=== PATIENT | female | born 1940 | race Caucasian/White ===

== ENCOUNTER 2016-08-19 11:58 | Day surgery (SDC) | payer MEDICARE ==
[~2016-08-19] VITALS: Ht 162.6 cm; Wt 65.8 kg
[~2016-08-19 11:58] MED LIST: ALENDRONATE SOD70 MG PO; ALEVE220 MG PO; ASPIRIN EC81 MG PO; CALCIUM + VITA1 EACH PO; CENTRUM SILVER1 EAC3 PO; LEVOTHYROXINE88 MCG PO; OMEPRAZOLE20 MG PO
--- NOTE | 2016-08-19 13:44 | NUR ---
08[facility]19/16 1344 [facility] REMOV[facility] AT THIS [facility].
--- NOTE | 2016-08-19 14:14 | NUR ---
PATIENT BACK IN DAY SURGERY ROOM FROM PACU. DENIES PAIN. DENIES NAUSEA. CSM TO RIGHT FOOT WNL. ICE PACK TO RIGHT KNEE. RIGHT LEG ELEVATED ON PILLOWS. RIGHT KNEE DRESSING CDI. IV SITE WNL. SCD ON LEFT LEG. FAMILY AT BEDSIDE. CALL LIGHT WITHIN REACH. ICE WATER GIVEN TO PATIENT.
[2016-08-19] MEDS ORDERED: NAPROXEN500 MG PO (14:42)
[2016-08-19] MEDS ORDERED: HYDROCODON-ACE1 EA11 PO (14:42)
--- NOTE | 2016-08-19 14:56 | NUR ---
PATIENT ASSISTED OOB AND TO BATHROOM. GAIT STEADY. VOID WITHOUT DIFFICULTY. WALKED INDEPENDENTLY BACK TO BED. GAIT STEADY. LUNCH ORDERED. IV SALINE LOCKED. FAMILY AT BEDSIDE. CALL LIGHT WITHIN REACH.
--- NOTE | 2016-08-19 16:19 | NUR ---
1608: PATIENT TOLERATED LUNCH. DISCHARGE INSTRUCTIONS GIVEN TO PATIENT AND FAMILY. IV DC'D WNL. DRESSING APPLIED. PATIENT DRESSED INDEPENDENTLY. PATIENT DISCHARGED TO HOME VIA WHEELCHAIR WITH DAUGHTER AND SON.
== END 2016-08-19 16:08 | disposition home or self-care (01) ==
LOC: DS 11:58
PROVIDERS: Specialist
PROC: 0SBC4ZZ Excision of Right Knee Joint, Percutaneous Endoscopic Approach (ICD-10-PCS; principal; 2016-08-19 13:00)
DX: S83.231A Complex tear of medial meniscus, current injury, right knee, initial encounter (principal); M94.261 Chondromalacia, right knee; K21.9 Gastro-esophageal reflux disease without esophagitis; Z88.0 Allergy status to penicillin; Z82.49 Family history of ischemic heart disease and other diseases of the circulatory system; Z82.3 Family history of stroke
CPT/HCPCS: 01400; J0690; J1885; J2405; J2704; J3010; J7120

== ENCOUNTER 2020-01-08 14:00 | Emergency (ER) | payer MEDICARE ==
[~2020-01-08] VITALS: Ht 162.6 cm; Wt 64.0 kg
[~2020-01-08 14:00] MED LIST changes: +HYDROCODON-ACE1 EA11 PO; +LEVOTHYROXINE75 MCG PO; +MAPAP500 M1 PO; +NAPROXEN500 MG PO; +NEURONTIN300 MG PO; +OXYCODONE HCL5 MG PO; +SENNA LAX8.6 MG PO; +XARELTO10 MG PO
[2020-01-08] MEDS ORDERED: LEVOTHYROXINE88 MCG PO (14:30)
--- NOTE | 2020-01-09 11:11 | EKG ---
[facility] [address] [facility] [place], [place] [address] Signed Normal sinus rhythm Normal ECG When compared with ECG of 21-OCT-2017 15:35, No significant change was found Confirmed by YAMEL RODRIGUEZ MD ([id number]) on 01/09/2020 11:10:51 AM Electronically Signed By: YAMEL RODRIGUEZ MD 01/09/20 1111 PATIENT NAME: GINA AKHTAR Electrocardiogram DATE OF : 40 PHYSICIAN: YAMEL RODRIGUEZ MD REPORT #: [id number] REPORT IS CONFIDENTIAL AND NOT TO BE RELEASED WITHOUT AUTHORIZATION
== END 2020-01-08 16:16 | disposition home or self-care (01) ==
LOC: ED 14:00
DX: S50.02XA Contusion of left elbow, initial encounter (principal); S80.02XA Contusion of left knee, initial encounter; S00.511A Abrasion of lip, initial encounter; W19.XXXA Unspecified fall, initial encounter; Z88.0 Allergy status to penicillin; Z88.8 Allergy status to other drugs, medicaments and biological substances; Z79.899 Other long term (current) drug therapy; Z79.82 Long term (current) use of aspirin
CPT/HCPCS: 70450; 80053; 81001; 83735; 84484; 85025; 93005; 93010; 99284-25

== ENCOUNTER 2021-03-11 09:41 | Emergency (ER) | payer MEDICARE ==
[~2021-03-11] VITALS: Ht 162.6 cm; Wt 64.0 kg
[~2021-03-11 09:41] MED LIST changes: +KEFLEX500 MG PO; +NITROFURANTOIN100 MG PO; +NORCO 5-325 TA1 EACH PO; +TAMIFLU75 MG PO
== END 2021-03-11 13:45 | disposition home or self-care (01) ==
LOC: ED 09:41
DX: U07.1 COVID-19 (principal); Z23 Encounter for immunization; Z88.0 Allergy status to penicillin; Z88.8 Allergy status to other drugs, medicaments and biological substances; Z79.899 Other long term (current) drug therapy; Z79.82 Long term (current) use of aspirin
CPT/HCPCS: 96374; 99283-25; J2405; M0247

== ENCOUNTER 2022-04-05 08:48 | Day surgery (SDC) | payer MEDICARE ==
[~2022-04-05] VITALS: Ht 162.6 cm; Wt 62.7 kg
--- NOTE | ~2022-04-05 | OR ---
[facility] [address] [place], [place] [address] Draft DATE OF OPERATION: 04/05/2022 SURGEON: Zach Price MD PREOPERATIVE DIAGNOSIS: Degenerative joint disease, left knee. POSTOPERATIVE DIAGNOSIS: Degenerative joint disease, left knee. PROCEDURE PERFORMED: Left total knee arthroplasty with Yan. SOUP MIXER: JONATHAN Kingsley. Su was present and critical for all portions of procedure. ANESTHESIA: Spinal. BLOOD LOSS: 175 mL. TOURNIQUET TIME: Zero. IMPLANTS: [place] Triathlon size 3 femur, 2 tibia, 9 mm polyethylene and a 32 mm patella. BRIEF HISTORY: Gina is an 81-year-old female with progressive worsening of left knee arthritis. She had undergone prior right total knee with good results and wished to proceed with the left. DESCRIPTION OF PROCEDURE: Once consent was obtained, she was taken to the operating room. After adequate anesthesia, she was placed on the operating room table and a hip bump. The leg was prepped and draped in a standard sterile fashion. The knee was then approached through a standard anterior midline incision, carried through skin and subcutaneous tissue. A mid vastus arthrotomy was performed and the infrapatellar fat pad was excised and the PATIENT NAME: GINA AKHTAR OPERATIVE REPORT DATE OF : 40 REPORT #: [id number] PHYSICIAN: ZACH PRICE MD PCP: ILIANA JACKSON MD REPORT IS CONFIDENTIAL AND NOT TO BE RELEASED WITHOUT AUTHORIZATION [facility] [address] [place], [place] [address] Draft MCL was elevated with a sleeve around the posteromedial corner. The anterior horns of the menisci and the ACL were transected. PCL was found to be intact. The navigation computer rays were placed in the medial femoral condyle and the proximal tibia. The leg was registered with the computer. The fine anatomic points of the knee were then registered and varus valgus testing was undertaken with minimal changes. Once this was completed, a robot was brought in and the four straight cuts and 2 angle cuts were made with care taken to protect the MCL and patellar tendon. The bony remnants removed as were any osteophytes. There were no significant osteophytes off the posterior femur. The trials were then positioned. The knee was taken through range of motion and found to be stable with good ligamentous balance. The patella was cut sized and drilled for an asymmetric 32 mm patella. The distal femoral drill holes were made. The proximal tibia was finished using the keel punch. Due to her poor bone quality and age, we elected to go with a hybrid prosthesis. The tibia was then irrigated and packed with a dry Ray-Yoav. The prosthesis was obtained and cement was mixed. Once the cement was mixed it was then placed on the tibia and patella along with corresponding implants. The tibia was impacted in position first, all overflow cement was removed. The polyethylene was snapped into position and the femur was impacted. The knee was then extended and nicely loaded. The patella was clamped into position again, all excess cement was removed. The cement was allowed to harden. Once it was hardened sufficiently, the remaining overflow was removed. The patella was noted to track quite well. The periarticular soft tissue was injected with 80 mL ropivacaine and Toradol mixture. On-Q pain pump was percutaneously placed into the adductor canal from the suprapatellar pouch. The knee was irrigated with two bottles of Irrisept and a liter of normal saline. The arthrotomy was then closed using #2 Stratafix, subcutaneous tissue with the 0 Quill and the skin with 3-0 Stratafix. LiquiBand was applied and the wound was dressed with an Aquacel Ag dressing, ABDs and Ken wrap. She tolerated the procedure well. All sponge, needle, and instrument counts were correct. Zach Price MD BA/MODL /[id number] Copies: PATIENT NAME: GINA AKHTAR OPERATIVE REPORT DATE OF : 40 REPORT #: [id number] PHYSICIAN: ZACH PRICE MD PCP: ILIANA JACKSON MD REPORT IS CONFIDENTIAL AND NOT TO BE RELEASED WITHOUT AUTHORIZATION [facility] [address] [place] [address] [place], [place] [address] Draft ~ PATIENT NAME: GINA AKHTAR OPERATIVE REPORT DATE OF : 40 REPORT #: [id number] PHYSICIAN: ZACH PRICE MD PCP: ILIANA JACKSON MD REPORT IS CONFIDENTIAL AND NOT TO BE RELEASED WITHOUT AUTHORIZATION
[~2022-04-05 08:48] MED LIST changes: +PROLIA60 MG/1 ML SUB-Q
[2022-04-05] MEDS ORDERED: PRESERVISION A1 EAC4 PO (09:30)
--- NOTE | 2022-04-05 10:26 | NUR ---
CASTRO 1010: BENEDICTO VALLES IN ROOM PERFORMING LEFT TOTAL KNEE BLOCK. THIS RN ASSITED WITH BLOCK. PT TOLERATED WELL. PT RESTING IN BED. APPEARS SLEEPY AFTER KNEE BLOCK. OXYGEN MONITOR ON. PT MAINTAINING O2 SATS AT 95% AND THEN DROPS TO 88% WHEN ASLEEP. DAUGHTER CONCEPCIÓN AT BEDSIDE.
--- NOTE | 2022-04-05 10:32 | NUR ---
2 L O2 VIA NASAL CANNULA INITIATED PER BENEDICTO CARPET FINISHING SUPERVISOR REQUEST. PT TOLERATING O2 LEVELS ABOVE 99%.
[2022-04-05] MEDS ORDERED: GABAPENTIN300 MG PO (12:24)
[2022-04-05] MEDS ORDERED: OXYCODONE HCL5 MG PO (12:24)
[2022-04-05] MEDS ORDERED: SENNA LAX8.6 MG PO (12:25)
[2022-04-05] MEDS ORDERED: ASPIRIN EC325 MG PO (12:25)
--- NOTE | 2022-04-05 12:38 | NUR ---
04/05/22 1238 Cristy Ahumada 1230 PATIENT ARRIVES TO PACU AWAKE, ASKING/ANSWERING QUESTIONS APPROPRIATELY. RESP EVEN AND UNLABORED, ROOM AIR SATS >95%. DENIES PAIN OR NAUSEA. 1235 PATIENT SITTING UP DRINKING WATER.
--- NOTE | 2022-04-05 13:04 | NUR ---
PT TRANSPORTED TO DAY SURGERY ROOM 3 VIA STRETCHER. REPORT TAKEN FROM CHARLIE LEZAMA. PT DENIES PAIN AND NAUSEA. PT SIPPING ICE WATER. DAUGHTER AT BEDSIDE. PT HAS ICE ON LEFT KNEE AND REPORTS FEELING THIS RN'S HAND ON BOTTOM OF FOOT. PT ABLE TO MOVE TOES AND LEG WITHOUT PAIN. CALL LIGHT WITHIN REACH.
--- NOTE | 2022-04-05 13:08 | NUR ---
PT EATING APPLE SAUCE AND CRACKERS AT BEDSIDE. CALL LIGHT WITHIN REACH.
--- NOTE | 2022-04-05 13:49 | NUR ---
PT RESTING IN BED WITH DAUGHTER AT BEDSIDE. PT DENIES PAIN HOWEVER WOULD LIKE ICE PACK ON BACK OF LEFT KNEE. DENIES NAUSEA. PT SIPPING WATER. PT STATES SHE IS READY TO WORK WITH PHYSICAL THERAPY. DENIES WANTING ANY PAIN MEDS. DENIES WANTING PAIN MEDICATION. CALL LIGHT WITHIN REACH.
--- NOTE | 2022-04-05 14:05 | NUR ---
PT RESTING IN BED WITH DAUGHTER AT BEDSIDE. PT DENIES PAIN. PT USING KARINA PAWS WARMER UNDER BLANKET. PT USED INCENTIVE SPIROMETER AT BEDSIDE. PT INFORMED THAT PHYSICAL THERAPY WOULD BE COMING SOON. CALL LIGHT WITHIN REACH.
--- NOTE | 2022-04-05 14:32 | NUR ---
LE 1415: PT AMBULATED TO RESTROOM WITH WALKER AND THIS RN ASSISTED. PT TOLERATED WELL AND DID NOT COMPLAIN OF PAIN OR DIZZINESS. PT AMBULATED WITH WALKER BACK TO ROOM 3 WITH ASSISTANCE. PT DENIES DIZZINESS AND PAIN. PT LAYED BACK IN BED WITH DAUGHTER AT BEDSIDE. 1425: SECOND DOSE OF TXA GIVEN. CALL LIGHT WITHIN REACH.
--- NOTE | 2022-04-05 15:29 | NUR ---
LE 1500: PT WITH PHYSICAL THERAPY. PT RESTING IN BED WITH DAUGHTER AT BEDSIDE. REPORTS FEELING TIRED FROM PHYSICAL THERAPY. DENIES PAIN AND NAUSEA. WATER AT BEDSIDE. CALL LIGHT WITHIN REACH.
--- NOTE | 2022-04-05 15:37 | NUR ---
CALL PLACED TO DR OCONNOR TO UPDATE ON PT STATUS AND PASSING PHYSICAL THERAPY. DR OCONNOR APPROVES FOR PT TO BE DISCHARGED.
--- NOTE | 2022-04-05 16:17 | NUR ---
LE 1555: SECOND DOSE ANCEF GIVEN. FLUSHED WITH 10 ML NORMAL SALINE. IV D/C WNL, TIP INTACT. DISCHARGE INSTRUCTIONS REVIEWED WITH PT AND DAUGHTER. QUESTIONS AND CONCERNS ADDRESSED. 1600: PT TO EDGE OF BED TO GET DRESSED IN PERSONAL CLOTHING WITH ASSISTANCE. PT TOLERATED WELL. 1610: PT DISCHARGED VIA WHEELCHAIR TO PERSONAL AUTOMOBILE TO DAUGHTER.
== END 2022-04-05 16:10 | disposition home or self-care (01) ==
LOC: DS 08:48
PROVIDERS: ATTEND Specialist
PROC: 3E0T3BZ Introduction of Anesthetic Agent into Peripheral Nerves and Plexi, Percutaneous Approach (ICD-10-PCS; 2022-04-05)
PROC: 0SRD0J9 Replacement of Left Knee Joint with Synthetic Substitute, Cemented, Open Approach (ICD-10-PCS; principal; 2022-04-05 11:40)
DX: M17.12 Unilateral primary osteoarthritis, left knee (principal); Z88.0 Allergy status to penicillin; Z88.8 Allergy status to other drugs, medicaments and biological substances; Z86.73 Personal history of transient ischemic attack (TIA), and cerebral infarction without residual deficits; E03.9 Hypothyroidism, unspecified; M10.062 Idiopathic gout, left knee
CPT/HCPCS: J0690; J1100; J1885; J2001; J2250; J2704; J2795; J7121

== ENCOUNTER 2023-08-02 12:48 | Day surgery (SDC) | payer MEDICARE ==
[~2023-08-02] VITALS: Ht 165.1 cm; Wt 65.5 kg
[~2023-08-02 12:48] MED LIST changes: +ASPIRIN EC325 MG PO; +CEFAZOLIN SODIUM 2 GM/20 ML SYR IV SCH; +GABAPENTIN300 MG PO; +IBLOOD GLUCOSE TEST STRIP 1 EA TEST VI PRN; +LACTATED RINGER'S 1,000 ML IV SCH; +LIDOCAINE HCL 1% 5 ML SDV INJ ONE; +MIDAZOLAM HCL 5 MG/5 ML VIAL IV PRN; +PRESERVISION A1 EAC4 PO; +fentaNYL citrate 100 MCG/2 ML VIAL IV PRN
--- NOTE | 2023-08-02 14:02 | NUR ---
LE 1305-PT UPDATED REGARDING SURGERY WAIT TIME. PT VERBALIZED UNDERSTANDING. NO OTHER NEEDS AT THIS TIME. CALL LIGHT WITHIN REACH.
[2023-08-02] MEDS ORDERED: CALCIUM 600 MG1 EA10 PO (14:56)
[2023-08-02] MEDS ORDERED: LOW DOSE ASPIRI81 MG PO (14:56)
[2023-08-02 15:09] VITALS: BP 153/74
[2023-08-02] MEDS ORDERED: MIDAZOLAM HCL 5 MG/5 ML VIAL ONE (18:08)
[2023-08-02] MEDS ORDERED: fentaNYL citrate 100 MCG/2 ML VIAL ONE (18:08)
--- NOTE | 2023-08-02 19:01 | NUR ---
08/02/231900 Regina Garrett 1856- PT ARRIVES TO UNIT VIA STRETCHER FROM OR. PT IS A&O AND RESPONDS TO VERBAL STIMULI W/OUT DIFFICULTY. PT RESPIRATIONS ARE EVEN AND UNLABORED, NO SIGNS OF DISTRESS. PT ON 2L OF O2 VIA NC, O2 >90% AT THIS TIME.
[2023-08-02 19:26] VITALS: BP 123/64
--- NOTE | 2023-08-05 11:50 | PATH ---
[facility] [address] [facility] [place] [address] Signed SPECIMEN(S): A HEPATIC FLEXURE COLON POLYP SPECIMEN(S): B ASCENDING RIGHT COLON POLYP SPECIMEN(S): C HEPATIC FLEXURE COLON POLYP SPECIMEN SOURCE: A. HEPATIC FLEXURE COLON POLYP B. ASCENDING RIGHT COLON POLYP C. HEPATIC FLEXURE COLON POLYP CLINICAL HISTORY: History colon polyps, family history colon cancer FINAL PATHOLOGIC DIAGNOSIS: A. Colon, hepatic flexure, polypectomy: - Tubular adenoma B. Colon, ascending, polypectomy: - Tubular adenoma C. Colon, hepatic flexure, polypectomy: - Tubular adenoma BRP MICROSCOPIC EXAMINATION: Histologic sections of all submitted blocks are examined by light microscopy. These findings, together with the gross examination, support the pathologic diagnosis. GROSS DESCRIPTION: A. The specimen, labeled and designated "Henajman, M, hepatic flexure colon polyp," is received in formalin and consists of four amos soft tissue fragments, ranging from 0.2-0.4 cm. Entirely submitted in (A1). B. The specimen, labeled and designated "Heehn, M, ascending right colon polyp," is received in formalin and consists of five amos soft tissue fragments, ranging from 0.2-0.4 cm. Entirely submitted in (B1). C. The specimen, labeled and designated "Heehn, M, hepatic flexure colon polyp," is received in formalin and consists of four amos soft tissue fragments, ranging from 0.2-0.4 cm. Entirely submitted in (C1). HS (under the direct supervision of a pathologist) The Gross Description was prepared using a voice recognition system. The report PATIENT NAME: GINA AKHTAR PATHOLOGY DATE OF : 40 REPORT #: [id number] PHYSICIAN: SUNITHA QUINONEZ PCP: ILIANA JACKSON MD REPORT IS CONFIDENTIAL AND NOT TO BE RELEASED WITHOUT AUTHORIZATION [facility] [address] [place], [place] [address] Signed was reviewed for accuracy; however, sound-alike word errors, addition and/or deletions may occur. If there is any question about this report, please contact Client Services. ADDITIONAL NOTES: Immunohistochemical and/or in situ hybridization studies if performed in this case included appropriate positive controls that reacted as expected. This test was developed and its performance characteristics determined by [facility]. It has not been cleared or approved by the U.S. Food and Drug Administration. The FDA has determined that such clearance or approval is not necessary. This test is used for clinical purposes. It should not be regarded as investigational or for research. [facility] is certified under the Clinical Laboratory Improvement Amendments of 1988 (CLIA) as qualified to perform high complexity clinical laboratory testing. PERFORMING LABORATORY: Technical component was performed by [facility], [address] [place] [id number] (CLIA# [id number]). Professional interpretation was performed by [facility], [address] [address] (CLIA# [id number]). Diagnostician: Vidal Marin MD Pathologist Electronically Signed 08/05/2023 Copies: ~ PATIENT NAME: GINA AKHTAR PATHOLOGY DATE OF : 40 REPORT #: [id number] PHYSICIAN: SUNITHA PATHOLOGY PCP: ILIANA JACKSON MD REPORT IS CONFIDENTIAL AND NOT TO BE RELEASED WITHOUT AUTHORIZATION
--- NOTE | 2023-08-05 15:28 | OR ---
[facility] [address] [place], [place] [address] Signed DATE OF OPERATION: 08/02/2023 SURGEON: Melvin Coleman MD PREOPERATIVE DIAGNOSES: 1. History of polyps. 2. Family history of colon cancer. POSTOPERATIVE DIAGNOSIS: Polyps x5 and diverticulosis. PROCEDURE: Total colonoscopy to cecum with cold morcellation polypectomy x1 and cold snare polypectomy x1. ANESTHESIA: Intravenous sedation; fentanyl 100 mcg and Versed 5 mg. INDICATION: This 82-year-old white woman is a patient of Dr. Jackson. She is well-known to me from the past. She has a significant family history of colon cancer including both her brothers. She has undergone polypectomy by me in the distant past including the cecum and elsewhere. Her last colonoscopy was in 2019, showing tubular adenomas without dysplasia in the ascending colon, splenic flexure and in the sigmoid. She has a distant history of ischemic colitis, but no problems of that nature at this time. She is admitted to undergo surveillance colonoscopy, understand the risk of bleeding, infection, and perforation. FINDINGS: The prep was good. Complete colonoscopy was undertaken of the cecum. There was a small polyp of the cecum, two in the right colon, one in the hepatic flexure and another at the hepatic flexure proper. All were excised completely. DESCRIPTION OF PROCEDURE: The patient was brought to the endoscopy suite and placed in lateral decubitus position, given intravenous sedation to the point of slurred speech and nystagmus. Digital rectal examination was normal. An Olympus video colonoscope was passed in the rectum and manipulated throughout the colon ultimately intubating the cecum itself. In the junction between the right colon Electronically Signed By: MELVIN COLEMAN MD 08/05/23 1528 PATIENT NAME: GINA AKHTAR OPERATIVE REPORT DATE OF : 40 REPORT #: [id number] PHYSICIAN: MELVIN COLEMAN MD PCP: ILIANA JACKSON MD REPORT IS CONFIDENTIAL AND NOT TO BE RELEASED WITHOUT AUTHORIZATION [facility] [address] [place], [place] [address] Signed and the cecum, there was a small polyp this was excised with cold morcellation technique. The scope was withdrawn and two similar such polyps were noted in the right mid ascending colon, both excised with cold morcellation technique. Another similar such polyp was noted at the hepatic flexure and also excised. She had another that was noted in the transverse colon. This excised by cold snare technique. Further withdrawal showed only diverticular changes of the left colon and sigmoid. Retroflexed view of the rectum was normal. The scope was removed. The patient was taken to recovery room in good condition. CONCLUDING DIAGNOSIS: Polyps x5 and diverticulosis. PLAN: Recommend repeat colonoscopy in three years, sooner if clinically indicated. Recommend high-fiber diet as well. MD TAI Martinez/ULYSSES /[id number] cc: Dr. Jackson Copies: ~ Electronically Signed By: MELVIN COLEMAN MD 08/05/23 1528 PATIENT NAME: GINA AKHTAR OPERATIVE REPORT DATE OF : 40 REPORT #: [id number] PHYSICIAN: MELVIN COLEMAN MD PCP: ILIANA JACKSON MD REPORT IS CONFIDENTIAL AND NOT TO BE RELEASED WITHOUT AUTHORIZATION
== END 2023-08-02 19:33 | disposition home or self-care (01) ==
LOC: DS 12:48
PROVIDERS: ATTEND Surgery
PROC: 0DBL8ZX Excision of Transverse Colon, Via Natural or Artificial Opening Endoscopic, Diagnostic (ICD-10-PCS; 2023-08-02)
PROC: 0DBH8ZX Excision of Cecum, Via Natural or Artificial Opening Endoscopic, Diagnostic (ICD-10-PCS; principal; 2023-08-02 14:00)
DX: Z12.11 Encounter for screening for malignant neoplasm of colon (principal); D12.2 Benign neoplasm of ascending colon; D12.3 Benign neoplasm of transverse colon; K57.30 Diverticulosis of large intestine without perforation or abscess without bleeding; Z86.010 Personal history of colon polyps; Z80.0 Family history of malignant neoplasm of digestive organs; E03.9 Hypothyroidism, unspecified; Z88.0 Allergy status to penicillin; Z88.8 Allergy status to other drugs, medicaments and biological substances; Z79.890 Hormone replacement therapy; Z79.899 Other long term (current) drug therapy
CPT/HCPCS: 99153; G0500; J0690; J2250; J3010; J7121